=== PATIENT | female | born 1945 | race Caucasian/White ===

== ENCOUNTER 2023-04-14 19:24 | Emergency (ER) | payer MEDICARE ==
[~2023-04-14] VITALS: Ht 177.8 cm; Wt 68.9 kg
[2023-04-15] MEDS ORDERED: KETOROLAC 30MG VIAL (30MG/ML) IM ONE (00:30)
[2023-04-15 00:53] VITALS: BP 126/78; PULSE 76; RESP 18; O2SAT 100
== END 2023-04-15 01:00 | disposition home or self-care (01) ==
LOC: EDH 19:24
DX: S39.012A Strain of muscle, fascia and tendon of lower back, initial encounter (principal); X58.XXXA Exposure to other specified factors, initial encounter; Y93.89 Activity, other specified; Y92.89 Other specified places as the place of occurrence of the external cause; Y99.8 Other external cause status
CPT/HCPCS: 99283; 96372; J1885